=== PATIENT | male | born 1965 | race Caucasian/White ===

== ENCOUNTER → 2018-10-09 | Day surgery (SDC) | payer MEDICAID, OTHER ==
[~2018-10-09] MED LIST: Lactated Ringers 1,000 ML IV SCH; Propofol 200 MG/20 ML SDV IV ONE
--- NOTE | 2018-10-09 14:31 | OR ---
DATE OF OPERATION: 10/09/2018 PREOPERATIVE DIAGNOSIS: 1. RECTAL PAIN. 2. CONSTIPATION. POSTOPERATIVE DIAGNOSIS: 1. FULL-LENGTH COLONOSCOPY. 2. LIKELY PROCTALGIA FUGAX. SURGEON: Shabbir Osman MD PROCEDURE: FULL-LENGTH COLONOSCOPY. ANESTHESIA: MAC via SENIOR UI DEVELOPER. COMPLICATIONS: None. SPECIMEN: None. FINDINGS: 1. Full-length colonoscopy. 2. Solis diverticulosis, moderate. 3. 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 RECOMMENDATIONS: Medical followup with the patient's provider. INDICATIONS: The patient has been having intermittent episodes of rectal pain in the perianal region, comes and goes without any warning or trigger. He was evaluated by his primary for fissure or lesion, none was found. He recommended colonoscopy. DESCRIPTION OF PROCEDURE: The patient was prepped and draped, placed in the left lateral decubitus position. A lubricated Olympus colonoscope was inserted and easily advanced to the cecum. We were able to directly visualize the ileocecal valve and appendiceal orifice. The bowel prep was fine. Upon withdrawal of the scope, the patient did have solis diverticulosis. There were some scattered diverticula even in the right colon, most of these were concentrated in the sigmoid as expected, moderate in severity. Throughout the length of the colon, I could find no other polyps, mass, ulceration, or bleeding sites. No vascular abnormalities or signs of colitis. The rectal vault was thoroughly evaluated, irrigated, and cleansed, and no lesions were seen. Retroflexion of the scope in the rectum showed no perianal lesions including fissures, hemorrhoids, etc. Air was then suctioned from the colon. The scope was removed without complication. TRENT/PADMINI /[id number]
== END ==
LOC: CC.SDS 10:49
PROVIDERS: ATTEND Family Medicine
DX: K57.30 Diverticulosis of large intestine without perforation or abscess without bleeding (principal)
CPT/HCPCS: 45378; J2704; J7120

== ENCOUNTER 2021-01-20 11:35 | Emergency (ER) | payer MEDICAID ==
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
== END 2021-01-20 12:35 | disposition home or self-care (01) ==
LOC: CC.ED 11:35
DX: S43.402A Unspecified sprain of left shoulder joint, initial encounter (principal); S50.812A Abrasion of left forearm, initial encounter; I10 Essential (primary) hypertension; Z88.1 Allergy status to other antibiotic agents; Z88.6 Allergy status to analgesic agent; Z79.899 Other long term (current) drug therapy; V86.99XA Unspecified occupant of other special all-terrain or other off-road motor vehicle injured in nontraffic accident, initial encounter
CPT/HCPCS: 73030-LT; 99284-25

== ENCOUNTER 2021-07-15 10:22 | Emergency (ER) | payer BC, MEDICAID ==
[2021-07-15] MEDS ORDERED: Bacitracin/Neomycin/Polymyxin B Oint 0.9 GM U/D Packet TOP ONE (10:57)
[2021-07-15] MEDS ORDERED: Bacitracin/Neomycin/Polymyxin B Oint 0.9 GM U/D Packet ONE (11:04)
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
== END 2021-07-15 11:22 | disposition home or self-care (01) ==
LOC: CC.ED 10:22
DX: S71.111A Laceration without foreign body, right thigh, initial encounter (principal); I10 Essential (primary) hypertension; Z88.1 Allergy status to other antibiotic agents; Z88.8 Allergy status to other drugs, medicaments and biological substances; Z79.899 Other long term (current) drug therapy; W26.0XXA Contact with knife, initial encounter
CPT/HCPCS: 99282

== ENCOUNTER 2024-04-03 13:29 | Emergency (ER) | payer MEDICAID ==
[2024-04-03 14:02] LABS: BASOPHILS ABSOLUTE AUTO 0.04 10^3/uL (0.00-0.50); BASOPHILS PERCENT AUTO 0.5 % (0-1); EOSINOPHILS ABSOLUTE AUTO 0.06 10^3/uL (0.00-1.50); EOSINOPHILS PERCENT AUTO 0.7 % (0-6); IMMATURE GRAN ABSOLUTE AUTO 0.02 10^3/uL (0.00-0.49); IMMATURE GRAN PERCENT AUTO 0.2 % (0.0-4.9); LYMPHOCYTES ABSOLUTE AUTO 2.44 10^3/uL (0.60-5.00); LYMPHOCYTES PERCENT AUTO 30.5 % (24-44); MEAN CORPUSCULAR HEMOGLOBIN 31.1 pg (27.0-32.0); MEAN CORPUSCULAR HGB CONC 33.3 g/dL (32.0-36.0); MEAN CORPUSCULAR VOLUME 93.4 fL (83.0-97.0); MONOCYTES ABSOLUTE AUTO 0.57 10^3/uL (0.00-1.50); MONOCYTES PERCENT AUTO 7.1 % (0-10); NEUTROPHILS ABSOLUTE AUTO 4.88 x10^3/uL (1.80-8.00); PLATELET COUNT,PLT 209 10^3/uL (150-400); RED BLOOD CELL COUNT 4.82 x10^6/uL (4.50-6.00)
[2024-04-03 14:17] LABS: ALANINE AMINOTRANSFERASE,ALT 41 U/L (12-78); ALBUMIN 3.9 g/dL (3.4-5.0); ALKALINE PHOSPHATASE 75 U/L (46-116); ASPARTATE AMNIOTRANSFERASE,AST 25 U/L (15-37); BILIRUBIN TOTAL 0.4 mg/dL (0.0-1.0); BLOOD UREA NITROGEN,BUN 15 mg/dL (7-18); C-REACTIVE PROTEIN < 0.50 mg/dL (<=0.50); CALCIUM 9.7 mg/dL (8.4-10.1); CARBON DIOXIDE,CO2 31 mmol/L (21-32); CHLORIDE,CL 104 mEq/L (98-106); EST CRCL DRUG DOSING (CG) 74.43 mL/min; ESTIMATED GFR 88 mL/min (>=60); GLUCOSE RANDOM 130 mg/dL (75-99); POTASSIUM,K 3.9 mEq/L (3.5-5.0); PROTEIN TOTAL,TP 7.7 g/dL (6.4-8.2); SODIUM,NA 144 mEq/L (136-145)
[2024-04-03] MEDS: Take Home: predniSONE 20 MG, 2 Tab Pack PO ONE (14:45)
== END 2024-04-03 14:50 | disposition home or self-care (01) ==
LOC: CC.ED 13:29
DX: R07.89 Other chest pain (principal); F17.210 Nicotine dependence, cigarettes, uncomplicated; E11.9 Type 2 diabetes mellitus without complications; I10 Essential (primary) hypertension; Z79.899 Other long term (current) drug therapy; Z88.1 Allergy status to other antibiotic agents; Z88.8 Allergy status to other drugs, medicaments and biological substances
CPT/HCPCS: 36415; 71046; 80053; 84484; 85025; 86140; 93005; 99285; J7512

== ENCOUNTER 2024-11-19 06:50 | Day surgery (SDC) | payer MEDICAID ==
[2024-11-19] MEDS: Lactated Ringers 1,000 ML IV SCH (07:12)
[2024-11-19] MEDS ORDERED: Midazolam 1 MG/ML 2 ML SDV ONE (07:21)
[2024-11-19] MEDS ORDERED: Propofol 200 MG/20 ML SDV ONE ×2 (07:21)
[2024-11-19] MEDS ORDERED: fentaNYL 50 MCG/ML SDV ONE (07:21)
[2024-11-19] MEDS ORDERED: Ketamine 200 MG/20 ML MDV ONE (07:21)
== END 2024-11-19 08:49 | disposition home or self-care (01) ==
LOC: CC.SDS 06:50
PROVIDERS: ATTEND Family Medicine
DX: K57.30 Diverticulosis of large intestine without perforation or abscess without bleeding (principal); I10 Essential (primary) hypertension; E78.5 Hyperlipidemia, unspecified; F41.9 Anxiety disorder, unspecified; E11.9 Type 2 diabetes mellitus without complications; E66.01 Morbid (severe) obesity due to excess calories; Z68.42 Body mass index [BMI] 45.0-49.9, adult; Z79.899 Other long term (current) drug therapy; Z88.1 Allergy status to other antibiotic agents; Z88.8 Allergy status to other drugs, medicaments and biological substances
CPT/HCPCS: 00811; J2250; J2704; J3010; J3490; J7120